=== PATIENT | female | born 1975 | race African-American/Black ===

== ENCOUNTER 2021-02-08 08:43 | Emergency (ER) | payer OTHER, SELFPAY ==
--- NOTE | ~2021-02-08 | XR_ITS ---
EXAMINATION: XR abdomen obstructive series DATE: 02/08/2021 09:34 INDICATION: Constipation. Recent dialysis catheter placement. TECHNIQUE: Supine and upright views of the abdomen. FINDINGS: No prior studies for comparison. The visualized lung parenchyma is normal.. There is a nonobstructive bowel gas pattern. Large amount of retained fecal material in the colon and rectum. There is no free air. Large bore central venous catheter tip near the cavoatrial junction. IMPRESSION: 1. No acute abdominal abnormality. Reviewed, dictated and finalized at location [facility].
[2021-02-08 08:52] VITALS: BP 163/102; PULSE 81; RESP 16; TEMP 36.6; O2SAT 98
--- NOTE | 2021-02-08 09:51 | ED.GENADULT ---
HPI - General Adult General Chief complaint: Unspecified <ARCHANA Philip Last Filed: 02/08/21 11:06> Stated complaint: fecal impaction <ARCHANA Philip Last Filed: 02/08/21 11:06> Time Seen by Provider: 02/08/21 09:16 <ARCHANA Philip Last Filed: 02/08/21 11:06> Source: patient <ARCHANA Philip Last Filed: 02/08/21 11:06> Mode of arrival: ambulatory <ARCHANA Philip Last Filed: 02/08/21 11:06> Limitations: no limitations <ARCHANA Philip Last Filed: 02/08/21 11:06> History of Present Illness HPI narrative: This is a 46 year old female that presents to the ER for constipation. Reports she was recently hospitalized for Port-A-Cath placement in order to start dialysis. Today was to be her first dialysis at 1030 this morning. Reports her last normal bowel movement was about a week ago. Reports a couple of days ago she did have a bowel movement, but since then she has only had liquid stool. She feels like she is really backed up and there is still a lot of stool stuck in there. She has taken 2 doses of Dulcolax. Denies fever, nausea, vomiting, hematochezia or melena. <ARCHANA Philip Last Filed: 02/08/21 11:06> Related Data Allergies/adverse reactions: Allergies Allergy/AdvReac Type Severity Reaction Status Date / Time Sulfa (Sulfonamide Allergy Unknown Rash Verified 06/12/18 10:38 Antibiotics) <ARCHANA Philip Last Filed: 02/08/21 11:06> Review of Systems Review of Systems: CONSTITUTIONAL: Denies fever GASTROINTESTINAL: Reports abdominal cramping. Denies nausea, vomiting <ARCHANA Philip Last Filed: 02/08/21 11:06> All systems reviewed & are unremarkable except as noted in HPI and below <ARCHANA Philip Last Filed: 02/08/21 11:06> COUNTS INCLUDE 234 BEDS AT THE [facility] Past Medical History Medical History: Medical History (Updated 02/08/21 @ 11:03 by Alicia Posey PA-C) CHF (congestive heart failure) End stage renal disease Lupus erythematosus Pulmonary HTN <Alicia Posey PA-C - Last Filed: 02/08/21 11:06> Surgical History Surgical History: Surgical History (Updated 07/23/19 @ 20:53 by Seferino Richey) Hx of lymph node excision Hx of tubal ligation Previous section <Alicia Posey PA-C - Last Filed: 02/08/21 11:06> Social History Social History: Social History (Updated 07/23/19 @ 20:53 by Seferino Richey) Smoking status: Former smoker <Alicia Posey PA-C - Last Filed: 02/08/21 11:06> Exam Narrative: GENERAL: Well-appearing, well-nourished, and in no acute distress. HEAD: Normocephalic, atraumatic. EYES: EOMI. CHEST: Clear to auscultation. No respiratory distress. No wheezes rales or rhonchi HEART: Regular rate and rhythm. No murmur heard. Normal peripheral pulses. ABDOMEN: Soft, nontender, nondistended, normal active bowel sounds. EXTREMITIES: Normal range of motion. No edema. SKIN: Warm, dry, no rash. NEURO: No focal deficits. Alert and oriented x3. PSYCH: Normal mood and affect RECTAL: No hemorrhoids or fissures noted. No active bleeding <Alicia Posey PA-C - Last Filed: 02/08/21 11:06> Course Vital Signs Vital signs: Vital Signs Temperature 98 F 02/08/21 08:52 Pulse Rate 81 02/08/21 08:52 Respiratory Rate 16 02/08/21 08:52 Blood Pressure 163/102 H 02/08/21 08:52 Pulse Oximetry 98 02/08/21 08:52 Temperature 98 F 02/08/21 08:52 Pulse Rate 81 02/08/21 08:52 Respiratory Rate 16 02/08/21 08:52 Blood Pressure 163/102 H 02/08/21 08:52 Pulse Oximetry 98 02/08/21 08:52 <Alicia Posey PA-C - Last Filed: 02/08/21 11:06> Vital Signs Temperature 98 F 02/08/21 08:52 Pulse Rate 81 02/08/21 08:52 Respiratory Rate 16 02/08/21 08:52 Blood Pressure 163/102 H 02/08/21 08:52 Pulse Oximetry 98 02/08/21 08:52 Temperature 98 F 02/08/21 08:52 Pulse Rate 81 02/08/21 08:52 Respiratory Rate 16
[2021-02-08] MEDS: polyethylene glycoL 3350 17 GM POWD.PACK PO (10:41)
--- NOTE | 2021-02-08 11:00 | PC.NURSE ---
Pt unable to have bowel movement with both fleet and soap suds enemas. PA Alicia aware.
== END 2021-02-08 11:19 | disposition home or self-care (01) ==
PROVIDERS: Emergency Provider General Practice; PCP Internal Medicine
DX: K59.00 Constipation, unspecified (principal); N18.6 End stage renal disease; Z99.2 Dependence on renal dialysis; I50.9 Heart failure, unspecified; I27.20 Pulmonary hypertension, unspecified; L93.0 Discoid lupus erythematosus; Z87.891 Personal history of nicotine dependence
CPT/HCPCS: 74019; 99283

== ENCOUNTER 2021-07-08 15:23 | Emergency (ER) | payer OTHER, SELFPAY ==
[2021-07-08 15:32] VITALS: BP 129/68; PULSE 95; RESP 16; TEMP 35.7; O2SAT 99
--- NOTE | 2021-07-08 16:37 | ED.GENADULT ---
HPI - General Adult General Chief complaint: Chest Pain Stated complaint: pain around chest area Time Seen by Provider: 07/08/21 16:16 Source: patient and RN notes reviewed Mode of arrival: ambulatory Limitations: no limitations History of Present Illness HPI narrative: Patient presents today complaining of a 2-day history ofLeft-sided chest wall pain and left axilla pain. She states this pain is due to lymph nodes. She has experienced similar pain in the past with lymph nodes in other areas of her body. She denies cough, fever, shortness of breath, or Any other recent illness or sick symptoms. Denies that her pain is cardiac in nature. She currently rates her pain 7/10. She has tried heat, massage, Tylenol without relief. She has peritoneal dialysis catheter. MD complaint: Lymph node pain Related Data Home Medications Medication Instructions Recorded Confirmed amlodipine 10 mg PO DAILY 07/08/21 07/08/21 bumetanide 2 mg PO BID 07/08/21 07/08/21 carvedilol 12.5 mg PO BID 07/08/21 07/08/21 clonidine HCl 0.3 mg PO TID 07/08/21 07/08/21 potassium chloride 40 meq PO DAILY 07/08/21 07/08/21 Allergies Allergy/AdvReac Type Severity Reaction Status Date / Time Sulfa (Sulfonamide Allergy Unknown Rash Verified 06/12/18 10:38 Antibiotics) Review of Systems Review of Systems: CONSTITUTIONAL: Denies body aches, fever, chills, or sweats. EYES: Denies visual changes, redness, or discharge. ENT: Denies rhinorrhea, congestion, sore throat, or otalgia. CARDIOVASCULAR: Denies chest pain, palpitations, or edema. RESPIRATORY: Denies cough or dyspnea. GASTROINTESTINAL: Denies abdominal pain, nausea, vomiting, or diarrhea. GENITOURINARY: Denies dysuria or hematuria. SKIN: Denies rash, itching, or wounds. MUSCULOSKELETAL: Denies back pain, joint pain, or myalgia.+Left axilla pain, left chest wall pain NEUROLOGIC: Denies headache, numbness, tingling, or weakness. PSYCH: Denies depression or anxiety. [facility] Past Medical History Medical History CHF (congestive heart failure) End stage renal disease Lupus erythematosus Pulmonary HTN Surgical History Surgical History Hx of lymph node excision Hx of tubal ligation Previous section Social History Social History Smoking status: Former smoker Comments At time of signature, I have reviewed and agree with nursing past medical, surgical, social and family history unless otherwise noted. Please see nursing chart for further information. There is no relevant family history pertinent to the presenting complaint Exam Narrative: GENERAL: Well-appearing, well-nourished, and in no acute distress. HEAD: Normocephalic, atraumatic. EYES: EOMI. No redness or drainage. Conjunctivae normal. ENT: Mucous membranes pink and moist. NECK: Normal AROM. Supple. No lymphadenopathy. CHEST: No respiratory distress. Clear to auscultation.Left lateral upper chest and left axilla are tender to palpation.No crepitus, edema, erythema, ecchymosis noted.No palpable lymph nodes noted. HEART: Regular rate and rhythm. No murmur appreciated. Normal peripheral pulses. EXTREMITIES: Normal range of motion. No edema. SKIN: Warm, dry, no rash. Capillary refill normal. Normal skin turgor. NEURO: No focal deficits. Alert and oriented x3. Gait steady. PSYCH: Normal affect. No signs of depression or anxiety. Course Course Emergency Course: Patient insists that last time she had symptoms similar to this she had resolution of symptoms after a course of antibiotics. I will treat with a course to see if her symptoms improve. If they do not, she agrees with plan to follow-up with her PCP. We also discussed possibility that symptoms could be due to shingles and the pain is just a prodrome. She will watch out for rash that may occur
== END 2021-07-08 16:54 | disposition home or self-care (01) ==
PROVIDERS: Emergency Provider Nurse Practitioner; PCP Internal Medicine
DX: R07.89 Other chest pain (principal); Z87.891 Personal history of nicotine dependence; E78.00 Pure hypercholesterolemia, unspecified; I13.2 Hypertensive heart and chronic kidney disease with heart failure and with stage 5 chronic kidney disease, or end stage renal disease; N18.6 End stage renal disease; I50.9 Heart failure, unspecified; L93.0 Discoid lupus erythematosus; Z99.2 Dependence on renal dialysis
CPT/HCPCS: 99213; G0463

== ENCOUNTER 2023-02-06 15:13 | Emergency (ER) | payer MEDICARE, SELFPAY ==
--- NOTE | 2023-02-06 15:25 | ED.FEMALEGU ---
HPI - Female Genitourinary General Chief complaint: Urogenital-Female Stated complaint: Urinary Problem Time Seen by Provider: 02/06/23 15:27 Source: patient, RN notes reviewed and old records reviewed Mode of arrival: ambulatory Limitations: no limitations History of Present Illness HPI Narrative: 48-year-old female presents to the [facility] with right flank pain. States that she was seen and treated for constipation and is not any better. States that she tried calling her dialysis doctor and set up appointment. States she has an appointment with her dialysis doctor tomorrow at 10:00 a.m. for lab work. Tried calling her primary which she reports is now retired. Patient reports that she had abnormal labs a week ago, dialysis doctor changed her peritoneal dialysis 1 week ago. States that she was told to hold the dialysis in for a period of time at night and then let it out. Denies fevers Denies chest pain or shortness of breath. MD elicited complaint: flank pain (right) Location of symptoms: flank (flank) Severity: moderate Severity scale (1-10): 6 Consistency: constant and progressively worsening Related Data Home Medications Medication Instructions Recorded Confirmed bumetanide 2 mg tablet 2 mg PO BID 07/08/21 02/06/23 carvedilol 12.5 mg tablet 12.5 mg PO BID 07/08/21 02/06/23 clonidine HCl 0.3 mg tablet 0.3 mg PO TID 07/08/21 02/06/23 apixaban 2.5 mg tablet (Eliquis) 2.5 mg PO BID 02/06/23 02/06/23 Allergies Allergy/AdvReac Type Severity Reaction Status Date / Time Sulfa (Sulfonamide Allergy Unknown Rash Verified 06/12/18 10:38 Antibiotics) Review of Systems Review of Systems: All systems reviewed & are unremarkable except as noted in HPI and below Constitutional: Constitutional: Reports no additional constitutional complaints Eyes: Eyes: Reports no additional eye complaints ENT: Reports system reviewed and no additional complaints, except as documented Cardiovascular: Cardiovascular: Reports no additional cardiovascular complaints, Denies chest pain and Denies dyspnea Respiratory: Respiratory: Reports no additional respiratory complaints, Denies chest congestion, Denies cough and Denies dyspnea Gastrointestinal: Gastrointestinal: Reports no additional gastrointestinal complaints, Denies abdominal pain, Denies nausea and Denies vomiting Genitourinary: Genitourinary: Reports as per HPI and Reports flank pain (right ) Musculoskeletal: Musculoskeletal: Reports no additional musculoskeletal complaints Integumentary/Breasts: Skin/Breast: Reports system reviewed and no additional complaints, except as docu Neurologic: Reports system reviewed and no additional complaints, except as documented Psychiatric: Psychiatric: Reports no additional psychiatric complaints Allergic/Immunologic: Allergic/Immunologic: Reports no additional allergic/immunologic complaints PMFSH Past Medical History Medical History (Updated 02/06/23 @ 16:39 by Elke Simons APRN) CHF (congestive heart failure) End stage renal disease Lupus erythematosus Peritoneal dialysis catheter in place Pulmonary HTN Surgical History Surgical History Hx of lymph node excision Hx of tubal ligation Previous section Social History Social History Smoking status: Former smoker Comments At the time of my signature, I reviewed and agree with the nursing past medical, surgical, social, and family history. There is no relevant family history pertinent to the patient complaint. Exam Const: General: cooperative, healthy appearing, comfortable, no acute distress, well developed, alert and well nourished Nutritional Appearance: well nourished and obese Orientation/consciousness: patient oriented x3 Limitations: no limitations HENMT: Head: normal to inspection Ears: hearing grossly normal bilaterally and external ears normal
[2023-02-06 15:28] VITALS: BP 128/84; PULSE 104; RESP 18; TEMP 36.4; O2SAT 98
[2023-02-06 15:30] VITALS: BP 128/84; PULSE 104; RESP 18; TEMP 36.4; O2SAT 98
== END 2023-02-06 15:40 | disposition short-term general hospital (02) ==
PROVIDERS: Emergency Provider Nurse Practitioner
DX: R10.9 Unspecified abdominal pain (principal); I13.2 Hypertensive heart and chronic kidney disease with heart failure and with stage 5 chronic kidney disease, or end stage renal disease; N18.6 End stage renal disease; I50.9 Heart failure, unspecified; Z99.2 Dependence on renal dialysis; Z87.891 Personal history of nicotine dependence
CPT/HCPCS: 99212; G0463

== ENCOUNTER 2023-02-07 23:42 | Emergency (ER) | payer MEDICARE, SELFPAY ==
--- NOTE | ~2023-02-07 | CT_ITS ---
EXAMINATION: CT abdomen pelvis wo con DATE: 02/08/2023 04:23 INDICATION: Abdominal pain. Rule out appendicitis TECHNIQUE: Computed tomography (CT) of the abdomen and pelvis was performed without intravenous contr ast due to contrast medium allergy. Automated exposure control and iterative reconstruction technique were employed. Exam dose: 1429.13 mGy-cm total exam DLP. COMPARISON: 02/08/2021 obstructive series 01/12/2009 MR pelvis 01/10/2019 CT abdomen pelvis FINDINGS: There is mild infiltrate or atelectasis in the dependent lower lingula. There are prominent discoid bands in the lingula and lower lobes, likely discoid scarring. Cardiomegaly. No pericardial or pleural effusion. The liver, gallbladder, bile ducts, spleen, pancreas and pancreatic duct and adrenal glands are unrem arkable. Approximately 9 mm exophytic lateral upper pole left renal probable cyst in the kidneys are otherwise unremarkable. No urinary tract calculus or hydroureteronephrosis. The urinary bladder is evacuated nearly completely and not optimally evaluated. Calcified uterine fibroids. There is a dermoid again noted in the right pelvis. Normal caliber of the abdominal aorta. No intraperitoneal or retroperitoneal or pelvic mass lesion or adenopathy. There is mild ascites, mild fluid accumulation around the liver, spleen, paracolic gutters, Morison's pouch, right lower quadrant and pelvis. There is a peritoneal dialysis catheter in place. No evidence of appendicitis is detected. Diverticulosis of left and right colon; no CT evidence of diverticulitis. No bowel obstruction, bowel wall thickening, pneumatosis or intraperitoneal free air is detected. Included skeletal structures are unremarkable. IMPRESSION: Peritoneal dialysis catheter; mild ascites Cardiomegaly Probable 9 mm upper pole left renal exophytic cyst Calcified uterine fibroids Right pelvic dermoid tumor, chronic Diverticulosis of left and right colon; no CT evidence of diverticulitis No evidence of appendicitis is detected Reviewed, dictated and finalized at [facility]. Reviewed, dictated and finalized at location A.
[2023-02-07 23:51] VITALS: BP 106/76; PULSE 91; RESP 14; TEMP 36.3; O2SAT 97
[2023-02-08 03:18] LABS: Basophils Percent Auto 0.4 % (0.2-1.2); Eosinophils Absolute Auto 0.2 K/mm3 (0-0.3); Eosinophils Percent Auto 2.1 % (0-4.4); Hematocrit 30.2 % (37.0-47.0); Hemoglobin 9.5 g/dL (12.0-15.0); Immature Granulocyte Absolute 0.05 K/mm3 (0.00-0.031); Immature Granulocyte Percent A 0.7 % (0-0.5); Lymphocytes Absolute Auto 2.66 K/mm3 (0.9-3.2); Lymphocytes Percent Auto 34.7 % (18.3-44.2); Mean Corpuscular HGB Conc 31.5 g/dl (32-36); Mean Corpuscular Volume 92.1 fl (80-100); Mean Platelet Volume 9.9 fl (7.4-10.4); Monocytes Absolute Auto 0.8 K/mm3 (0.1-0.6); Monocytes Percent Auto 10.7 % (2.6-8.5); Neutrophils Absolute Auto 3.9 K/mm3 (1.3-6.7); Neutrophils Percent Auto 51.4 % (45.5-73.1); Platelet Count Result 226 k/mm3 (150-375); Red Blood Count 3.28 M/mm3 (4.2-5.4); White Blood Count 7.7 K/mm3 (4.5-10.0)
[2023-02-08 03:21] VITALS: BP 116/62; PULSE 94; RESP 16; O2SAT 100
[2023-02-08 03:31] LABS: Alanine Aminotransferase 14 U/L (6-35); Alkaline Phosphatase 141 U/L (38-126); Anion Gap 14 mmol/L (8-16); Aspartate Amino Transferase 20 U/L (14-36); Bilirubin,Total 0.5 mg/dL (0.2-1.3); Blood Urea Nitrogen 68 mg/dL (7-17); Calcium 8.1 mg/dL (8.4-10.2); Carbon Dioxide 25 mmol/L (22-30); Chloride 97 mmol/L (98-107); Estimated CRCL calculation 7 ml/min; Estimated Glomerular Filt Rate 4; Glucose 132 mg/dL (65-110); Lipase 270 U/L (23-300); Potassium 3.1 mmol/L (3.4-5.0); Sodium 136 mmol/L (137-145)
[2023-02-08 03:50] LABS: Appearance Urine Cloudy (Clear); Bacteria Urine 1+ /hpf; Bilirubin Urine Negative (Negative); Blood Urine 1+ (Negative); Color Urine Yellow (Yellow); Glucose Urine UA Negative (Negative); Ketones Urine 1+ mg/dL (Negative); Leukocyte Esterase Ur Trace LEU/UL (Negative); Need Manual Microscopic Reviewed; Nitrate Urine Negative (Negative); Protein Urine 3+ mg/dL (Negative); Specific Grav Ur 1.021 (1.001-1.035); Squamous Epithelial Cell Urine Many /hpf (Few)
[2023-02-08 03:52] LABS: Add Urine Microscopic? YES
[2023-02-08 03:55] VITALS: BP 104/68; PULSE 77; RESP 15; O2SAT 100
--- NOTE | 2023-02-08 05:13 | ED.GENADULT ---
HPI - General Adult General Chief complaint: Abdominal Pain <David Beck MD - Last Filed: 02/08/23 05:15> Stated complaint: appy? <David Beck MD - Last Filed: 02/08/23 05:15> Time Seen by Provider: 02/08/23 04:30 <David Beck MD - Last Filed: 02/08/23 05:15> History of Present Illness HPI narrative: Patient 48-year-old female who presents emerged from with chief complaint of abdominal pain. Patient reports that she is a peritoneal dialysis patient and reports that recently she has been having abdominal discomfort. Patient reports that she has been started on emergency antibiotics for possible SBP and a sample was collected by her dialysis nurse today the patient states that her dialysis nurse was concerned that she may have appendicitis and recommended that she came to the emergency department for CT scan. Patient reports at this time she does not need any pain medication and she just wants to figure out what is going on. <David Beck MD - Last Filed: 02/08/23 05:15> Related Data Home medications: Home Medications Medication Instructions Recorded Confirmed bumetanide 2 mg tablet 2 mg PO BID 07/08/21 02/06/23 carvedilol 12.5 mg tablet 12.5 mg PO BID 07/08/21 02/06/23 clonidine HCl 0.3 mg tablet 0.3 mg PO TID 07/08/21 02/06/23 apixaban 2.5 mg tablet (Eliquis) 2.5 mg PO BID 02/06/23 02/06/23 <David Beck MD - Last Filed: 02/08/23 05:15> Allergies/adverse reactions: Allergies Allergy/AdvReac Type Severity Reaction Status Date / Time Sulfa (Sulfonamide Allergy Unknown Rash Verified 02/07/23 23:42 Antibiotics) <David Beck MD - Last Filed: 02/08/23 05:15> Review of Systems Review of Systems: A 10 system review of systems was completed on the patient and is negative except for what is stated in the HPI. Nursing and ancillary documentation was reviewed. <David Beck MD - Last Filed: 02/08/23 05:15> [facility] Past Medical History Medical History: Medical History CHF (congestive heart failure) End stage renal disease Lupus erythematosus Peritoneal dialysis catheter in place Pulmonary HTN <David Beck MD - Last Filed: 02/08/23 05:15> Surgical History Surgical History: Surgical History Hx of lymph node excision Hx of tubal ligation Previous section <David Beck MD - Last Filed: 02/08/23 05:15> Social History Social History: Social History Smoking status: Former smoker <David Beck MD - Last Filed: 02/08/23 05:15> Exam Narrative: GENERAL: Well-appearing, well-nourished, and in no acute distress. HEAD: Normocephalic, atraumatic. EYES: PERRLA and EOMI. ENT: Nares clear, no rhinorrhea or epistaxis. Mucous membranes moist. NECK: Supple. CHEST: Clear to auscultation. No respiratory distress. HEART: Regular rate and rhythm. No murmur heard. Normal peripheral pulses. ABDOMEN: Soft, diffusely tender to palpation, peritoneal dialysis catheter in place, dialysate is clear inside of the tubing, nondistended, normal active bowel sounds. EXTREMITIES: Normal range of motion. No edema. SKIN: Warm, dry, no rash. NEURO: No focal deficits. Alert and oriented x3. PSYCH: Normal mood and affect. <David Beck MD - Last Filed: 02/08/23 05:15> Course Vital Signs Vital signs: Vital Signs Temperature 97.4 F L 02/07/23 23:51 Pulse Rate 91 02/07/23 23:51 Respiratory Rate 14 02/07/23 23:51 Blood Pressure 106/76 02/07/23 23:51 Pulse Oximetry 97 02/07/23 23:51 Oxygen Delivery Room Air 02/07/23 23:51 Temperature 97.4 F L 02/07/23 23:51 Pulse Rate 79 02/08/23 08:39 Respiratory Rate 16 02/08/23
[2023-02-08 06:19] VITALS: BP 132/80; PULSE 82; RESP 15; O2SAT 97
[2023-02-08 08:39] VITALS: BP 129/81; PULSE 79; RESP 16
== END 2023-02-08 08:41 | disposition home or self-care (01) ==
PROVIDERS: Emergency Medicine; Emergency Provider Emergency Medicine; PCP Family Medicine
DX: R10.9 Unspecified abdominal pain (principal); N18.6 End stage renal disease; I50.9 Heart failure, unspecified; I27.20 Pulmonary hypertension, unspecified; M32.9 Systemic lupus erythematosus, unspecified; Z99.2 Dependence on renal dialysis
CPT/HCPCS: 36415; 74176; 80053; 81001; 83690; 85025; 87086; 99284

== ENCOUNTER 2023-05-27 16:04 | Emergency (ER) | payer MEDICARE, MEDICAID, SELFPAY ==
--- NOTE | 2023-05-27 16:09 | ED.URI ---
HPI - URI/Sore Throat General Chief Complaint: Upper Respiratory Infection Stated Complaint: flu symptoms Source: patient and RN notes reviewed Mode of arrival: ambulatory Limitations: no limitations History of Present Illness HPI Narrative: Patient is a 48-year-old female who presents to the [facility] with complaints of nasal drainage and cough starting on Friday. Patient states she has had persistent nasal drainage. She reports a frequent nonproductive cough. States that her symptoms worsened yesterday. She denies sore throat but reports postnasal drip. States that she has been taking Claritin at home with minimal relief. She denies chest pain or shortness of breath. Denies recent fevers. Related Data Home Medications Medication Instructions Recorded Confirmed carvedilol 12.5 mg tablet 25 mg PO BID 07/08/21 05/27/23 Allergies Allergy/AdvReac Type Severity Reaction Status Date / Time Sulfa (Sulfonamide Allergy Unknown Rash Verified 05/27/23 16:29 Antibiotics) ibuprofen AdvReac Other Verified 05/27/23 16:29 Review of Systems Review of Systems: CONSTITUTIONAL: Denies fever, chills, or sweats. EYES: Denies visual changes, redness, or discharge. ENT: Denies otalgia and sore throat. Reports nasal congestion. CARDIOVASCULAR: Denies chest pain, palpitations, or edema. RESPIRATORY: Denies dyspnea. Reports cough. GASTROINTESTINAL: Denies abdominal pain, nausea, vomiting, or diarrhea. GENITOURINARY: Denies dysuria or hematuria. SKIN: Denies rash or itching. MUSCULOSKELETAL: Denies back pain, joint pain, or myalgia. NEUROLOGIC: Denies headache, numbness, or weakness. Pertinent positives per HPI. [facility] Past Medical History Medical History CHF (congestive heart failure) End stage renal disease Lupus erythematosus Peritoneal dialysis catheter in place Pulmonary HTN Surgical History Surgical History Hx of lymph node excision Hx of tubal ligation Previous section Social History Social History Smoking status: Former smoker Comments At the time of my signature, I reviewed and agree with the nursing past medical, surgical, social, and family history. There is no relevant family history pertinent to the patient complaint. Exam Narrative: GENERAL: This is a well-nourished, well-developed patient, in no apparent distress. HEAD: normocephalic, atraumatic. EYES: Sclera clear/white. Vision is grossly intact. EARS: External ears normal. Hearing grossly intact. NOSE: External nose normal. Moderate nasal congestion. THROAT: Mucous membranes moist, posterior pharynx clear. NECK: Neck supple, non-tender without lymphadenopathy, masses or thyromegaly. CARDIOVASCULAR: Regular rate and rhythm without murmurs, gallops, or rubs. RESPIRATORY: Clear to auscultation. Breath sounds equal bilaterally. No wheezes, rales, or rhonchi. GASTROINTESTINAL: Abdomen soft, non-tender, nondistended. Bowel sounds are active. No hepato-splenomegaly, or palpable masses. No guarding. SKIN: warm, intact with no suspicious lesions or rash, good texture and turgor. NEURO: awake, alert, and oriented to person, place and time. There were no obvious focal neurologic abnormalities. Course Course Level of Care: Express Care Visit Vital Signs Vital signs: Vital Signs Temperature 97.6 F 05/27/23 16:10 Pulse Rate 88 05/27/23 16:10 Respiratory Rate 18 05/27/23 16:10 Blood Pressure 161/106 H 05/27/23 16:10 Pulse Oximetry 98 05/27/23 16:10 Oxygen Delivery Room Air 05/27/23 16:10 Temperature 97.6 F 05/27/23 16:32 Pulse Rate 88 05/27/23 16:32 Respiratory Rate 18 05/27/23 16:32 Blood Pressure 161/106 H 05/27/23 16:32 Pulse Oximetry 98 05/27/23 16:32 Oxygen Delivery Room Air 05/27/23 16:32 Reviewed MDM - URI/Sor
[2023-05-27 16:10] VITALS: BP 161/106; PULSE 88; RESP 18; TEMP 36.4; O2SAT 98
[2023-05-27 16:32] VITALS: BP 161/106; PULSE 88; RESP 18; TEMP 36.4; O2SAT 98
== END 2023-05-27 16:55 | disposition home or self-care (01) ==
PROVIDERS: Emergency Provider Nurse Practitioner; PCP Family Medicine
DX: J01.90 Acute sinusitis, unspecified (principal); Z20.822 Contact with and (suspected) exposure to COVID-19; I13.2 Hypertensive heart and chronic kidney disease with heart failure and with stage 5 chronic kidney disease, or end stage renal disease; N18.6 End stage renal disease; I50.9 Heart failure, unspecified; Z99.2 Dependence on renal dialysis; L93.0 Discoid lupus erythematosus; I27.20 Pulmonary hypertension, unspecified
CPT/HCPCS: 87081; 87426; 87804; 87880; 99213; C9803; G0463

== ENCOUNTER 2023-08-05 11:42 | Emergency (ER) | payer MEDICARE, MEDICAID, SELFPAY ==
--- NOTE | 2023-08-05 11:48 | ED.FEMALEGU ---
HPI - Female Genitourinary General Chief complaint: Urogenital-Female Stated complaint: kidney infection Time Seen by Provider: 08/05/23 11:47 Source: patient Mode of arrival: ambulatory Limitations: no limitations History of Present Illness HPI Narrative: Rosa is a 48-year-old female patient presenting to the clinic today with complaints of possible kidney infection. She reports she started having symptoms yesterday. Has taken her emergency antibiotics (cefdinir). Has had 2 doses of the cefdinir. Reports that she has renal failure and is on peritoneal dialysis. Is reporting urinary symptoms with right flank pain Related Data Home Medications Medication Instructions Recorded Confirmed carvedilol 12.5 mg tablet 25 mg PO BID 07/08/21 08/05/23 Allergies Allergy/AdvReac Type Severity Reaction Status Date / Time Sulfa (Sulfonamide Allergy Unknown Rash Verified 08/05/23 12:31 Antibiotics) ibuprofen AdvReac Other Verified 08/05/23 12:31 Review of Systems Review of Systems: Pertinent positives per HPI. Patient denies any fever, chills, rash, headache, visual changes, dizziness, cough, runny nose, sore throat, shortness of breath, chest pain, palpitations, nausea, vomiting, diarrhea, constipation, abdominal pain. PMF Past Medical History Medical History CHF (congestive heart failure) End stage renal disease Lupus erythematosus Peritoneal dialysis catheter in place Pulmonary HTN Surgical History Surgical History Hx of lymph node excision Hx of tubal ligation Previous section Social History Social History Smoking status: Former smoker Comments At the time of my signature, I reviewed and agree with the nursing past medical, surgical, social, and family history. There is no relevant family history pertinent to the patient complaint. Exam Narrative: General: Well-developed, obese, in no apparent distress. Head: Normocephalic, atraumatic. Cardio: Regular rate and rhythm, s1 and s2 normal, no murmur appreciated. Resp: Clear to auscultation bilaterally, no rhonchi, rales, wheezing or rubs. Abdomen: Soft, pliable, bowel sounds present in all quadrants, non-tender to palpation, no organomegly, positive right CVAT tenderness. Course Course Emergency Course: Portions of this record may have been created with voice recognition software. Level of Care: Express Care Visit Vital Signs Vital signs: Vital Signs Temperature 36.3 C L 08/05/23 12:10 Pulse Rate 83 08/05/23 12:10 Respiratory Rate 18 08/05/23 12:10 Blood Pressure 141/84 H 08/05/23 12:10 Pulse Oximetry 100 08/05/23 12:10 Oxygen Delivery Room Air 08/05/23 12:10 Temperature 36.3 C L 08/05/23 12:10 Pulse Rate 83 08/05/23 12:10 Respiratory Rate 18 08/05/23 12:10 Blood Pressure 141/84 H 08/05/23 12:10 Pulse Oximetry 100 08/05/23 12:10 Oxygen Delivery Room Air 08/05/23 12:10 Vital signs reviewed MDM - Female Genitourinary MDM Narrative Medical decision making narrative: At the time of visit patient is resting comfortably on the exam table. Patient appears to be nontoxic. Labs: UA positive for trace leukocytes, 3+ protein, and 2+ blood. Patient is a peritoneal dialysis patient with chronic renal failure. Plan: Will send in prescription for cefdinir. Supportive measures were discussed with the patient and they voiced understanding discharge instructions and agrees to treatment plan. Strict return precautions reviewed. Reviewed symptoms of sepsis. Differential Diagnosis Differential diagnosis: Likely urinary tract infection, cystitis and other (Urosepsis, pyelonephritis) Lab Data Labs: Urine Glucose Negative Reference Range: Negative
[2023-08-05 12:10] VITALS: BP 141/84; PULSE 83; RESP 18; TEMP 36.3; O2SAT 100
== END 2023-08-05 13:20 | disposition home or self-care (01) ==
PROVIDERS: Emergency Provider Nurse Practitioner Family; PCP Family Medicine
DX: N12 Tubulo-interstitial nephritis, not specified as acute or chronic (principal); I27.20 Pulmonary hypertension, unspecified; N18.6 End stage renal disease; Z99.2 Dependence on renal dialysis; I50.9 Heart failure, unspecified; Z87.891 Personal history of nicotine dependence; L93.0 Discoid lupus erythematosus
CPT/HCPCS: 81003; 87086; 99213; G0463